=== PATIENT | male | born 1950 | race Caucasian/White ===

== ENCOUNTER 2016-12-09 05:01 | Inpatient (IN) ==
[2016-12-03 14:43] LABS: Appearance,Urine CLEAR; Bilirubin,Urine NEG (NEG); Color,Urine YELLOW; Glucose,Urine (UA) NEGATIVE (NEG); Leukocyte Esterase,Urine NEG /uL (NEG); Nitrate,Urine NEG (NEG); Protein,Urine NEG (NEG); Urine Blood NEG mg/dL (<0.03); Urobilinogen,Urine NEG (NEG)
[2016-12-03 16:58] LABS: Basophils # (Auto) 0 K/mcL (0.0-0.3); Basophils % (Auto) 0.5 % (0.0-2.0); Eosinophils # (Auto) 0.2 K/mcL (0.0-0.7); Eosinophils % (Auto) 2.6 % (0.0-7.0); Granulocytes % (Auto) 75.3 % (38.0-78.0); Lymphocytes % (Auto) 13.9 % (15.5-49.0); Mean Cell Volume 96.4 fL (80.0-100.0); Mean Corpuscular HGB Conc 32.8 g/dL (31.0-36.0); Mean Corpuscular Hemoglobin 31.6 pg (26.0-34.0); Monocytes # (Auto) 0.5 K/mcL (0.1-0.9); Monocytes % (Auto) 7.7 % (1.0-9.0); Platelet Count 276 K/mcL (140-440); RBC 4.56 M/mcL (4.50-5.90); Red Cell Distribution Width 13.7 % (11.5-14.5)
[2016-12-03 17:14] LABS: Blood Urea Nitrogen 21 mg/dl (8-23)
[~2016-12-09 05:01] MED LIST: ACETAMINOPHEN 500 MG TABLET PO SCH; CELECOXIB 200 MG CAPSULE PO SCH; PREGABALIN 150 MG CAPSULE PO SCH; ceFAZolin 1 GM VIAL IV SCH; oxyCODONE 10 MG TAB.ER.12H PO SCH
[2016-12-09] MEDS ORDERED: KETOROLAC 30 MG, ROPIVACAINE HCL/PF 49.5 ML, EPINEPHrine 0.5 MG, 0.9 % SODIUM CHLORIDE ... IJ SCH (06:30)
[2016-12-09] MEDS ORDERED: HYDROmorphone 2 MG/ML SYRINGE IV PRN (07:39)
[2016-12-09] MEDS ORDERED: ACETAMINOPHEN 325 MG TABLET PO PRN (07:39)
[2016-12-09] MEDS ORDERED: TRANEXAMIC ACID 1,000 MG/10 ML VIAL IV SCH (07:39)
[2016-12-09] MEDS ORDERED: BENZOCAINE/MENTHOL 1 LOZENGE PO PRN ×2 (07:39→09:14)
[2016-12-09] MEDS ORDERED: POLYETHYLENE GLYCOL 3350 17 GM PACKET PO PRN (07:39)
[2016-12-09] MEDS ORDERED: MAGNESIUM HYDROXIDE 30 ML ORAL.SUSP PO PRN (07:39)
[2016-12-09] MEDS ORDERED: ONDANSETRON 4 MG/2 ML VIAL IV PRN ×2 (07:39→09:14)
[2016-12-09] MEDS ORDERED: FLEETS ADULT ENEMA PR PRN (07:39)
[2016-12-09] MEDS ORDERED: BISACODYL 10 MG SUPP.RECT PR PRN (07:39)
[2016-12-09] MEDS ORDERED: DEXAMETHASONE 10 MG/ML VIAL IV ONE (07:40)
[2016-12-09] MEDS ORDERED: LIDOCAINE HCL/PF 100 MG/5 ML SYRINGE IV ONE (07:40)
[2016-12-09] MEDS ORDERED: ONDANSETRON 4 MG/2 ML VIAL IV ONE (07:40)
[2016-12-09] MEDS ORDERED: PHENYLEPHRINE 10 MG/ML VIAL IV ONE (07:40)
[2016-12-09] MEDS ORDERED: PROPOFOL 200 MG/20 ML VIAL IV ONE (07:40)
[2016-12-09] MEDS ORDERED: MIDAZOLAM 5 MG/5 ML VIAL IV ONE (07:40)
[2016-12-09] MEDS ORDERED: ROPIVACAINE HCL/PF 30 ML VIAL IJ ONE (07:40)
--- NOTE | 2016-12-09 08:14 | Brief Operative Note ---
Date of procedure: 12/09/16 Surgeon: Tomasz Peter
[2016-12-09] MEDS ORDERED: GENTAMICIN SULFATE 800 MG/20 ML VIAL IR ONE (08:17)
[2016-12-09] MEDS ORDERED: CELECOXIB 200 MG CAPSULE PO SCH (09:00)
[2016-12-09] MEDS ORDERED: FLUMAZENIL 0.1 MG/ML ML IV PRN (09:14)
[2016-12-09] MEDS ORDERED: PROMETHAZINE 25 MG/ML VIAL IV PRN (09:14)
[2016-12-09] MEDS ORDERED: diphenhydrAMINE 50 MG/ML VIAL IV PRN (09:14)
[2016-12-09] MEDS ORDERED: ATROPINE SULFATE 0.4 MG/ML VIAL IV PRN (09:14)
[2016-12-09] MEDS ORDERED: METHOCARBAMOL 1,000 MG/10 ML VIAL IV PRN (09:14)
[2016-12-09] MEDS ORDERED: METOPROLOL TARTRATE 5 MG/5 ML VIAL IV PRN (09:14)
[2016-12-09] MEDS ORDERED: NALOXONE HCL 0.4 MG/ML VIAL IV PRN (09:14)
[2016-12-09] MEDS ORDERED: IPRATROPIUM/ALBUTEROL 3 ML AMPUL.NEB NEB PRN (09:14)
[2016-12-09] MEDS ORDERED: ePHEDrine 50 MG/ML AMPUL IV PRN (09:14)
[2016-12-09] MEDS ORDERED: MEPERIDINE 25 MG/ML SYRINGE IV PRN (09:14)
[2016-12-09] MEDS ORDERED: LACTATED RINGERS 1,000 ML IV SCH (09:15)
[2016-12-09] MEDS: fentaNYL 100 MCG/2 ML VIAL IV PRN ×4 (10:19→10:34)
[2016-12-09] MEDS: HYDROmorphone 2 MG/ML SYRINGE IV PRN ×3 (10:40→10:55)
--- NOTE | 2016-12-09 11:05 | XRay Report ---
CLINICAL INFORMATION: Postsurgical follow-up TECHNIQUE: portable AP and lateral right knee COMPARISON: None. FINDINGS: Status post right total knee arthroplasty. Tibial and femoral complements are in anatomic positions. There is postsurgical soft tissue and intra-articular gas IMPRESSION: Status post right total knee arthroplasty Interpreted and Authenticated by: Booker Harris 12/09/16
[2016-12-09] MEDS: 0.45 % SODIUM CHLORIDE 1,000 ML IV SCH ×2 (11:30→17:44)
[2016-12-09] MEDS: PENICILLIN V POTASSIUM PO SCH ×2 (11:34→16:13)
[2016-12-09] MEDS: KETOROLAC 15 MG/ML VIAL IV SCH ×2 (13:04→19:13)
[2016-12-09] MEDS: ceFAZolin 1 GM VIAL IV SCH ×2 (13:58→23:15)
[2016-12-09] MEDS: HYDROcodone/APAP 10/325MG TABLET PO PRN (13:58)
[2016-12-09] MEDS: TAMSULOSIN 0.4 MG CAPSULE PO SCH (13:58)
[2016-12-09] MEDS: HYDROCHLOROTHIAZIDE 12.5 MG CAPSULE PO SCH (13:59)
[2016-12-09] MEDS: 0.9 % SODIUM CHLORIDE 10 ML SYRINGE IV SCH ×2 (13:59→22:13)
[2016-12-09] MEDS: MULTIVIT,THER IRON,CA,FA & MIN 1 TABLET PO SCH (13:59)
[2016-12-09] MEDS: LISINOPRIL 20 MG TABLET PO SCH (13:59)
[2016-12-09] MEDS: ATORVASTATIN 20 MG TABLET PO SCH (14:01)
[2016-12-09] MEDS: PENICILLIN VK 250 MG TABLET PO SCH ×3 (17:48→21:40)
[2016-12-09] MEDS ORDERED: TEMAZEPAM 15 MG CAPSULE PO PRN (21:00)
[2016-12-09] MEDS ORDERED: SENNOSIDES 1 TABLET PO SCH (21:00)
[2016-12-09] MEDS: oxyCODONE 10 MG TAB.ER.12H PO SCH (21:09)
[2016-12-09] MEDS: POLYETHYLENE GLYCOL 3350 17 GM PACKET PO SCH (21:10)
[2016-12-09] MEDS: GLUCOSAMINE/CHONDROITIN SULF A 1 CAP CAPSULE PO SCH (21:10)
[2016-12-09] MEDS: DOCUSATE SODIUM 100 MG CAPSULE PO SCH (21:10)
[2016-12-09] MEDS: ASPIRIN 325 MG ENTERIC COATED TABLET PO SCH (22:04)
[2016-12-10] MEDS: KETOROLAC 15 MG/ML VIAL IV SCH ×2 (00:54→05:55)
[2016-12-10] MEDS: 0.45 % SODIUM CHLORIDE 1,000 ML IV SCH ×2 (00:54→08:26)
[2016-12-10] MEDS: PENICILLIN VK 250 MG TABLET PO SCH ×4 (01:03→08:24)
[2016-12-10] MEDS: HYDROcodone/APAP 10/325MG TABLET PO PRN ×3 (01:09→10:58)
[2016-12-10] MEDS: TAMSULOSIN 0.4 MG CAPSULE PO SCH ×2 (05:04→08:26)
[2016-12-10] MEDS: 0.9 % SODIUM CHLORIDE 10 ML SYRINGE IV SCH (05:55)
--- NOTE | 2016-12-10 06:41 | Orthopedic Progress Note ---
Subjective Patient information: Note initiated : 12/10/16 at 6:40 am Service Date, if different from initiated Date: [] Patient: Evangelista Lieberman 66 y/o M admitted on 12/09/16 for Right Total Knee Arthroplasty - Robotic. Chief Complaint: [minimal pain co of urinary retention] Objective Vital signs: Vital Signs Temp Pulse Pulse Pulse Resp BP BP 12/10/16 03:08 98.0 F 72 20 117/70 12/10/16 00:00 98.9 F 89 20 115/70 12/09/16 23:00 12/09/16 20:00 97.3 F L 87 20 121/76 12/09/16 19:00 80 12/09/16 17:19 167/92 12/09/16 15:00 88 80 12/09/16 14:09 80 16 147/89 12/09/16 12:54 97/66 12/09/16 12:25 116/80 12/09/16 11:55 108/68 12/09/16 11:40 91/60 12/09/16 11:25 138/71 12/09/16 11:18 12/09/16 11:10 96.0 F L 12 134/84 12/09/16 10:54 98.4 F 88 12 127/65 12/09/16 10:39 79 12 143/80 12/09/16 10:24 84 14 158/86 12/09/16 10:08 98.0 F 84 16 130/74 Pulse Ox 12/10/16 03:08 91 12/10/16 00:00 91 12/09/16 23:00 91 12/09/16 20:00 92 12/09/16 19:00 0 L 12/09/16 17:19 97 12/09/16 15:00 97 12/09/16 14:09 97 12/09/16 12:54 96 12/09/16 12:25 94 12/09/16 11:55 94 12/09/16 11:40 93 12/09/16 11:25 92 12/09/16 11:18 93 12/09/16 11:10 93 12/09/16 10:54 94 12/09/16 10:39 93 12/09/16 10:24 97 12/09/16 10:08 93 Intake and Output 12/09/16 12/10/16 12/10/16 21:59 05:59 13:59 Intake Total 480 / 480 1396 / 1396 Output Total 1100 / 1100 1700 / 1700 300 / 300 Balance -620 / -620 -304 / -304 -300 / -300 Intake: IV 896 / 896 Sodium Chloride 0.45% 1, 896 / 896 000 ml @ 125 mls/hr IV . Q8H MIHAI Rx#:[id number] Oral 480 / 480 500 / 500 Output: Urine Catheter Amount 425 / 425 Void Amount 675 / 675 1700 / 1700 300 / 300 Other: Meal Dinner Percent of Meal Consumed 100% Feeding Ability Independent Weight 187 lb 8 oz Intake & Output: Intake & Output 12/09/16 12/10/16 12/10/16 21:59 05:59 13:59 Intake Total 480 / 480 1396 / 1396 Output Total 1100 / 1100 1700 / 1700 300 / 300 Balance -620 / -620 -304 / -304 -300 / -300 Weight 187 lb 8 oz Intake: IV 896 / 896 Sodium Chloride 0.45% 1, 896 / 896 000 ml @ 125 mls/hr IV . Q8H MIHAI Rx#:[id number] Oral 480 / 480 500 / 500 Output: Urine Catheter Amount 425 / 425 Void Amount 675 / 675 1700 / 1700 300 / 300 Other: Meal Dinner Percent of Meal Consumed 100% Feeding Ability Independent Incision: Yes healing Incision clean and dry: Yes Dressing: Yes clean Weight bearing status: full Neurological exam IM: Yes oriented X3, Yes neurovascular intact Extremities exam IM: Yes Foot pink and warm, Yes neurovascular intact (dc home) - Labs CBC & BMP: 12/10/16 05:00 12/03/16 13:32 Labs: 12/10/16 12/03/16 05:00 13:32 Hgb 14.4 Hct 33.2 L 43.9
--- NOTE | 2016-12-10 06:45 | Discharge Summary ---
Ortho Discharge - TKA - Patient Instructions Diet: Regular Diet Activity: activity as tolerated, weight bearing as tolerated Total Knee Protocol: For Total Knee: Start ROM SARAH with stationary bike or rocking chair. Work on gaining full extension of knee. Posterior dislocation precautions provided. Hip abductor strengthening and gait training instructions provided. Apply Cryocuff as instructed. Dressing Care: Aquacel Ag - leave on for 5 days - Follow Up Plan Disposition: Home, Self-Care Prognosis: Good Rehab Potential: Good I certify that the patient requires SNF services: No Overall status at discharge: patient is progressing back to baseline - Orders For Discharge Additional Discharge Orders: Toilet Riser Discharge Order Location: Determined By Patient
--- NOTE | 2016-12-10 06:49 | Discharge Summary ---
Ortho Discharge - TKA - Patient Instructions Diet: Regular Diet Activity: activity as tolerated, weight bearing as tolerated Total Knee Protocol: For Total Knee: Start ROM SARAH with stationary bike or rocking chair. Work on gaining full extension of knee. Posterior dislocation precautions provided. Hip abductor strengthening and gait training instructions provided. Apply Cryocuff as instructed. Dressing Care: Aquacel Ag - leave on for 5 days - Follow Up Plan Disposition: Home, Self-Care Prognosis: Good Rehab Potential: Good I certify that the patient requires SNF services: No Overall status at discharge: patient is progressing back to baseline - Orders For Discharge Additional Discharge Orders: Physical Therapy at Discharge - TKA Location: Determined By Patient Toilet Riser Discharge Order Location: Determined By Patient Toilet Riser Discharge Order Location: Determined By Patient Walker Location: Determined By Patient
[2016-12-10] MEDS ORDERED: PANTOPRAZOLE 40 MG TABLET PO SCH (07:30)
[2016-12-10] MEDS: ATORVASTATIN 20 MG TABLET PO SCH (08:22)
[2016-12-10] MEDS: MULTIVIT,THER IRON,CA,FA & MIN 1 TABLET PO SCH (08:22)
[2016-12-10] MEDS: DOCUSATE SODIUM 100 MG CAPSULE PO SCH (08:22)
[2016-12-10] MEDS: LISINOPRIL 20 MG TABLET PO SCH (08:22)
[2016-12-10] MEDS: ASPIRIN 325 MG ENTERIC COATED TABLET PO SCH (08:22)
[2016-12-10] MEDS: oxyCODONE 10 MG TAB.ER.12H PO SCH (08:22)
[2016-12-10] MEDS: HYDROCHLOROTHIAZIDE 12.5 MG CAPSULE PO SCH (08:23)
[2016-12-10] MEDS: GLUCOSAMINE/CHONDROITIN SULF A 1 CAP CAPSULE PO SCH (08:23)
[2016-12-10] MEDS: POLYETHYLENE GLYCOL 3350 17 GM PACKET PO SCH (08:26)
[2016-12-10] MEDS ORDERED: FISH OIL 1,000 MG CAPSULE PO SCH (09:00)
== END 2016-12-10 12:50 | disposition home or self-care (01) | DRG 470 ==
LOC: MEDSUR 05:01
PROVIDERS: ADMIT Orthopaedic Surgery; ATTEND Orthopaedic Surgery